=== PATIENT | female | born 1935 | race Hispanic/Latino ===

== ENCOUNTER 2018-11-25 07:07 | Outpatient (CLI) | payer MEDICARE ==
--- NOTE | 2018-11-25 08:59 | Vascular Lab Report ---
DUPLEX DOPPLER LOWER EXTREMITY VEINS, BILATERAL INDICATION: Bilateral lower extremity swelling and pain. TECHNIQUE: Duplex doppler imaging was performed through the veins of both lower extremities using ve nous compression and other maneuvers. COMPARISON: No relevant prior imaging study available. FINDINGS: Right Common femoral vein: Negative. Right Superficial femoral vein: Negative. Right Popliteal vein: Negative. Right Calf veins: Negative. Left Common femoral vein: Negative. Left Superficial femoral vein: Negative. Left Popliteal vein: Negative. Left Calf veins: Negative. Additional findings: Deep venous reflux is noted in the left popliteal vein measuring 3542 ms.. IMPRESSION: No sonographic evidence for DVT in either lower extremity. Signer Name: Hardeep Prado Jr, MD Signed: 11/25/2018 8:55 AM Workstation Name: [id number]
== END 2018-11-25 07:08 | disposition home or self-care (01) ==
LOC: VAS 07:07
PROVIDERS: ATTEND Family Medicine Adult Medicine
DX: I82.532 Chronic embolism and thrombosis of left popliteal vein (principal)
CPT/HCPCS: 93970